=== PATIENT | female | born 1945 | race Caucasian/White ===

== ENCOUNTER 2016-12-04 21:21 | Emergency (ER) | payer OTHER, MEDICARE ==
[2016-12-04 21:37] VITALS: PULSE 61; TEMP 97.8; BMI 29.1
[2016-12-04] MEDS ORDERED: MECLIZINE HCL 25 MG TABLET (FP) PO STA (23:09)
--- NOTE | 2016-12-04 23:09 | PDOC ---
History of Present Illness - General History Source: Patient Exam Limitations: No Limitations - History of Present Illness Initial Comments: 12/04/16 23:14 The patient is a 71 year old female with significant past medical history of hypertension and vertigo who presents to the ED with 1 day of high blood pressure. Patient reports she checked her blood pressure last night and just prior to arrival when she noted to be 170s/90s both times. She reports associated persistent headache, which she describes as a dull ache behind the left eye. Patient also has complaints of vertigo-like symptoms such as being off -balance. She states she is on meclizine, but has not taken her meclizine. The patient denies fever, chills, cough, SOB, and chest pain. The patient denies abdominal pain, nausea, vomiting, and diarrhea. Allergies: NKDA Social History: No alcohol, tobacco, or drug use reported. Past Surgical History: None reported <Natalia Bower - Last Filed: 12/04/16 23:14> - General History Source: Patient <Abelardo Lang - Last Filed: 12/05/16 01:25> - General Chief Complaint: Blood Pressure Problem Stated Complaint: HIGH BLOOD PRESSURE Time Seen by Provider: 12/04/16 22:49 Past History <Natalia Bower - Last Filed: 12/04/16 23:14> - Past Medical History Cancer: Yes (melanoma on heel) HTN: Yes Other medical history: vertigo - Immunization History Immunization Up to Date: No - Psycho/Social/Smoking Cessation Hx Suicidal Ideation: No Smoking Status: No Smoking History: Never smoked Number of Cigarettes Smoked Daily: 0 <Abelardo Lang - Last Filed: 12/05/16 01:25> - Past Medical History Allergies/Adverse Reactions: Allergies Allergy/AdvReac Type Severity Reaction Status Date / Time No Known Allergies Allergy Verified 12/04/16 21:33 Home Medications: Ambulatory Orders Aspirin [ASA -] 81 mg PO DAILY 12/04/16 Hydrochlorothiazide [Hctz -] 25 mg PO DAILY 12/04/16 Amox-Tr/K Cl [Augmentin 875Mg Tablet] 1 tab PO BID #20 tablet 12/05/16 Review of Systems - Review of Systems Able to Perform ROS?: Yes Comments:: 12/04/16 23:14 CONSTITUTIONAL: Absent: fever, chills, diaphoresis, generalized weakness, malaise, loss of appetite HEENT: Absent: rhinorrhea, nasal congestion, throat pain, throat swelling, difficulty swallowing, mouth swelling, ear pain, eye pain, visual Changes CARDIOVASCULAR: +high blood pressure Absent: chest pain, syncope, palpitations, irregular heart rate, lightheadedness, peripheral edema RESPIRATORY: Absent: cough, shortness of breath, dyspnea with exertion, orthopnea, wheezing, stridor, hemoptysis GASTROINTESTINAL: Absent: abdominal pain, abdominal distension, nausea, vomiting, diarrhea, constipation, melena, hematochezia GENITOURINARY: Absent: dysuria, frequency, urgency, hesitancy, hematuria, flank pain, genital pain MUSCULOSKELETAL: Absent: myalgia, arthralgia, joint swelling SKIN: Absent: rash, itching, pallor NEUROLOGIC: +headache, off-balance Absent: focal weakness or paresthesias, dizziness, seizure, mental status changes, bladder or bowel incontinence <Natalia Bower - Last Filed: 12/04/16 23:14> *Physical Exam - Vital Signs Last Vital Signs Temp Pulse Resp BP Pulse Ox 97.8 F 61 18 185/100 99 12/04/16 21:34 12/04/16 21:34 12/04/16 21:34 12/04/16 21:34 12/04/16 21:34 - Physical Exam Comments: 12/04/16 23:14 GENERAL: Well developed, well nourished. Awake and alert. No acute distress. HEENT: Normocephalic, atraumatic. PERRLA, EOMI. No conjunctival pallor. Sclera are non- icteric. Moist mucous membranes. Oropharynx is clear. NECK: Supple. Full ROM. No JVD. Carotid pulses 2+ and symmetric, without bruits. No thyromegaly. No lymphadenopathy. CARDIOVASCULAR: Regular rate and rhythm. No murmurs, rubs, or gallops. Distal pulses are 2+ and symmetric. PULMONARY: No evidence of respiratory distress. Lungs clear to auscultation bilaterally. No wheezing, rales or rhonchi. ABDOMINAL: Soft. Non-tender. Non-distended. No rebound or guarding. No organomegaly. Normoactive bowel sounds. MUSCULOSKELETAL Normal range of motion at all joints. No bony deformities or tenderness. No CVA tenderness. EXTREMITIES: No cyanosis. No clubbing. No edema. No calf tenderness. SKIN: Warm and dry. Normal capillary refill. No rashes. No jaundice. NEUROLOGICAL: Alert, awake, appropriate. Cranial nerves 2-12 intact. Moving all extremities. No gross focal neurological deficits. PSYCHIATRIC: Cooperative. Good eye contact. Appropriate mood and affect. <Natalia Bower - Last Filed: 12/04/16 23:14> - Vital Signs Last Vital Signs Temp Pulse Resp BP Pulse Ox 97.8 F 61 18 185/100 99 12/04/16 21:34 12/04/16 21:34 12/04/16 21:34 12/04/16 21:34 12/04/16 21:34 <Abelardo Lang - Last Filed: 12/05/16 01:25> Medical Decision Making - Medical Decision Making 12/04/16 23:27 Dr. Lang: The scribe's documentation has been prepared under my direction and personally reviewed by me in its entirery. I confirm that the note above accurately reflects all work, treatment, procedures, and medical decision making performed by me. Patient has her own meclizine prescription Pt will take her own medication 12/05/16 01:25 <Abelardo Lang - Last Filed: 12/05/16 01:25> *DC/Admit/Observation/Transfer - Attestations Scribe Attestion: 12/04/16 23:15 Documentation prepared by Natalia Bower, acting as medical laboratory technical officer for Abelardo Lang MD <Natalia Bower - Last Filed: 12/04/16 23:14> - Discharge Dispostion Admit: No <Abelardo Lang - Last Filed: 12/05/16 01:25> Diagnosis at time of Disposition: Sinusitis Qualifiers: Sinusitis location: unspecified location Chronicity: acute Recurrence: not specified Qualified Code(s): J01.90 - Acute sinusitis, unspecified - Discharge Dispostion Disposition: HOME Condition at time of disposition: Stable - Referrals Referrals: STAFF,NOT ON [Primary Care Provider] - - Patient Instructions Printed Discharge Instructions: DI for Sinusitis
[2016-12-04] MEDS ORDERED: MECLIZINE HCL 25 MG TABLET (FP) ONE (23:40)
[2016-12-05] MEDS ORDERED: ONDANSETRON 8 MG TABLET (FP) PO ONE ×2 (01:11→01:41)
[2016-12-05 01:17] VITALS: BP 174/89
[2016-12-05] MEDS ORDERED: AMOX TR/POT CLAV 875MG/125MG TABLETS (FP) PO STA (01:24)
== END 2016-12-05 01:48 | disposition home or self-care (01) ==
LOC: JER 21:21
DX: J01.90 Acute sinusitis, unspecified (principal); Z79.82 Long term (current) use of aspirin; I10 Essential (primary) hypertension
CPT/HCPCS: 70450-TC; 99282-25